=== PATIENT | female | born 1945 | race Caucasian/White ===

== ENCOUNTER 2018-04-06 18:44 | Emergency (ER) | payer MEDICARE, OTHER ==
[~2018-04-06] VITALS: Ht 175.3 cm; Wt 89.4 kg
[~2018-04-06 18:44] MED LIST: ACETAMINOPHEN-1 EAC1; AMITIZA 24 MCG24 MCG PO; ATIVAN0.5 MG PO; ATORVASTATIN CA40 MG PO; BENTYL 10 MG CA10 MG PO; COZAAR 50 MG TA50 M2 PO; COZAAR100 MG PO; DIOVAN40 MG PO; FLONASE BU; FLUOXETINE HCL40 MG PO; GAS-X; GLUCOPHAGE1000 MG PO; GLUCOTROL5 MG PO; GLYBURIDE 5 MG T5 M1 PO; KOMBIGLYZE XR1 EAC2 PO; LISINOPRIL10 MG PO; LOFIBRA67 MG PO; LOVASTAT40 PO; MEVACOR40 MG PO; NEURONTIN 300300 M1 PO; NORCO 5-325 TA1 EACH PO; PREVACID 30MG C30 M1 PG; PROZAC10 MG PO; PROZAC20 MG PO; SIMVASTATIN40 MG PO; TRAMADOL 50 MG50 MG PO
[2018-04-06] MEDS ORDERED: NAPROSYN500 MG PO ×2 (19:44→19:46)
[2018-04-06 20:02] VITALS: BP 159/50
== END 2018-04-06 20:03 | disposition home or self-care (01) ==
LOC: M.ERS 18:44
DX: S90.32XA Contusion of left foot, initial encounter (principal); F31.9 Bipolar disorder, unspecified; E78.5 Hyperlipidemia, unspecified; G25.81 Restless legs syndrome; E11.9 Type 2 diabetes mellitus without complications; F17.210 Nicotine dependence, cigarettes, uncomplicated; Z90.710 Acquired absence of both cervix and uterus; Z87.442 Personal history of urinary calculi; Z88.6 Allergy status to analgesic agent; Z88.8 Allergy status to other drugs, medicaments and biological substances; W22.8XXA Striking against or struck by other objects, initial encounter; Y93.89 Activity, other specified; Y92.89 Other specified places as the place of occurrence of the external cause; Y99.8 Other external cause status

== ENCOUNTER → 2019-06-20 | Outpatient (CLI) | payer MEDICARE, OTHER ==
[~2019-06-20] MED LIST changes: +NAPROSYN500 MG PO
== END ==
LOC: M.MRI 05-28 09:38
DX: Z12.2 Encounter for screening for malignant neoplasm of respiratory organs (principal); I70.213 Atherosclerosis of native arteries of extremities with intermittent claudication, bilateral legs; M50.21 Other cervical disc displacement, high cervical region; M48.02 Spinal stenosis, cervical region; Z87.891 Personal history of nicotine dependence; Z90.49 Acquired absence of other specified parts of digestive tract

== ENCOUNTER → 2019-09-26 | Outpatient (CLI) | payer MEDICARE, OTHER | LOC: M.MRI 11:10 | DX: M51.26 Other intervertebral disc displacement, lumbar region (principal); M48.061 Spinal stenosis, lumbar region without neurogenic claudication; M54.42 Lumbago with sciatica, left side; M77.9 Enthesopathy, unspecified ==

== ENCOUNTER → 2020-01-04 | Outpatient (CLI) | payer MEDICARE, OTHER | LOC: M.ULTRA 08:00 | PROVIDERS: ATTEND Nurse Practitioner Family | DX: D17.23 Benign lipomatous neoplasm of skin and subcutaneous tissue of right leg (principal); I65.23 Occlusion and stenosis of bilateral carotid arteries; R09.89 Other specified symptoms and signs involving the circulatory and respiratory systems; R22.41 Localized swelling, mass and lump, right lower limb ==

== ENCOUNTER → 2020-01-18 | Outpatient (CLI) | payer MEDICARE, OTHER | LOC: M.MRI 10:13 | PROVIDERS: ATTEND Nurse Practitioner Family | DX: R22.41 Localized swelling, mass and lump, right lower limb (principal) ==

== ENCOUNTER → 2020-02-06 | Outpatient (CLI) | payer MEDICARE, OTHER ==
[2020-02-06 10:30] LABS: HEMATOCRIT 37.2 % (37.0-47.0); HEMOGLOBIN 12.5 gm/dL (12.0-15.0); MCH 29.3 pg (26.0-34.0); MCHC 33.6 g/dL (28.0-37.0); MCV 87.1 fL (80.0-100.0); RBC 4.28 mil/uL (4.20-5.00); RDW-CV 14.5 % (10.5-14.5)
== END ==
LOC: M.LAB 09:56
PROVIDERS: ATTEND Orthopaedic Surgery
DX: M79.604 Pain in right leg (principal)

== ENCOUNTER → 2020-02-20 | Outpatient (CLI) | payer MEDICARE, OTHER ==
[2020-02-20 12:47] LABS: CREATININE 0.9 mg/dL (0.6-1.3)
== END ==
LOC: M.MRI 02-13 10:09 → M.LAB 12:19 → M.MRI 13:30
PROVIDERS: ATTEND Neurological Surgery
DX: M51.37 Other intervertebral disc degeneration, lumbosacral region (principal); M48.07 Spinal stenosis, lumbosacral region; M51.26 Other intervertebral disc displacement, lumbar region; M46.86 Other specified inflammatory spondylopathies, lumbar region; N28.1 Cyst of kidney, acquired; M25.78 Osteophyte, vertebrae

== ENCOUNTER → 2020-04-01 | Outpatient (CLI) | payer MEDICARE, OTHER | LOC: M.RAD 11:40 | PROVIDERS: ATTEND Nurse Practitioner Family | DX: M19.072 Primary osteoarthritis, left ankle and foot (principal); M85.872 Other specified disorders of bone density and structure, left ankle and foot; M77.32 Calcaneal spur, left foot ==

== ENCOUNTER → 2020-07-02 | Outpatient (CLI) | payer MEDICARE, OTHER ==
[~2020-07-02] MED LIST changes: +ACTOS 45 MG45 M1 PO; +ASA81BEC PO; -ATORVASTATIN CA40 MG PO; +FLUOXETINE HCL60 MG PO; +LIPITOR40 MG PO; +LYRICA100 MG PO; +MAGNESIUM250 M1 PO; +VITAMIN D31250 MC1 PO
--- NOTE | 2020-07-03 10:53 | CARDNUC ---
[place] [address] CARDIAC NUCLEAR IMAGING REPORT Name: RACHEL NOONAN Mirza Room: [facility]#: [id number] Admission: 07/02/20 Attend Phys: Katie Lugo MD Discharge: Date of : 49 Date of Service: 07/03/20 1052 Report #: [id number] THIS REPORT FOR: cc: Barbi Nicole Angela Jo RNP Liston, Michael J. MD [facility] ~ APPROVED REPORT Study performed: 07/02/2020 11:28:24 Exam: Nuclear Stress Test Indication: Chest pain Patient Location: Out-Patient Stress Tech: Jaylyn Hamilton Stress Nurse: Lea Rivas RN NM Tech:ISREAL Flores Ht: 5 ft 9 in Wt: 220 lbs BSA: 2.15 m2 BMI: 32.48 Medical History Medical History: Diabetes, HTN, Hyperlipidemia, Smoking Medications: lipitor, asa81, losartan Allergies: novacaine, lisinopril, ibuprofen, metformin, bupropion, reglan, alendronate, rybelsus Cardiac Risk Factors: Age, Current Smoker, DM, HTN, Hyperlipidemia Exercise History: Sedentary Stress Test Details Stress Test: Pharmacologic stress testing performed using 0.4 mg of regadenoson per 5 mL given IV over 10 seconds. Reason for pharmacologic stress test: physical limitation. HR Resting HR: 60 bpm Max Heart Rate (APMHR): 148 bpm Max HR Achieved: 79 bpm Target HR (85% APMHR): 125 bpm % of APMHR: 53 Recovery HR: 75 bpm BP Resting BP: 130/57 mmHg Max BP: 121/41 [place] [address] CARDIAC NUCLEAR IMAGING REPORT Name: RACHEL NOONAN Room: [facility]#: [id number] Admission: 07/02/20 Attend Phys: Katie Lugo MD Discharge: Date of : 49 Date of Service: 07/03/20 1052 Report #: [id number] ECG Resting ECG: Sinus Rhythm Stress ECG: Sinus Rhythm ST Change: None Arrhythmia: None Recovery ECG: Sinus Rhythm Recovery ST Change: None Recovery Arrhythmia: None Clinical Reason for Termination: Completed protocol The patient tolerated Lexiscan infusion without significant cardiac symptoms. Nurse Comments pt unalble to stand unassisted Stress ECG Conclusion Baseline twelve-lead EKG shows sinus rhythm without significant ST segment or T wave abnormality. EKGs obtained during and post Lexiscan infusion show sinus rhythm with no significant ST segment or T wave changes when compared to baseline. There were no stress-induced arrhythmias. NM EXAM: Myocardial Perfusion REST/STRESS Imaging Protocol: Rest Tc-99m/Stress Tc-99m 1 day Resting Data Rest SPECT myocardial perfusion imaging was performed in supine position 30 minutes following the intravenous injection of 10.3 mCi of Tc-99m Sestamibi. Time of rest injection: 0935 Date: 07/02/2020 The images were gated to evaluate regional wall motion and calculate left ventricular ejection fraction. Administration Route: IV Administration Site: Right Wrist Pharmacologic Stress Pharmacologic stress test was performed by injecting Regadenoson 0.4 mg IV push followed by the intravenous injection of 29.6 mCi of Tc-99m Sestamibi. Time of stress injection: 1155 Date: 07/02/2020 Administration Route: IV Gated Stress SPECT was performed 40 minutes after stress injection. The images were gated to evaluate regional [place] [address] CARDIAC NUCLEAR IMAGING REPORT Name: RACHEL NOONAN Room: [facility]#: [id number] Admission: 07/02/20 Attend Phys: Katie Lugo MD Discharge: Date of : 49 Date of Service: 07/03/20 1052 Report #: [id number] left ventricular ejection fraction. Prone imaging was performed. Study Quality Study: Good Artifact: Mild Breast artifact Study Data At rest, the left ventricular ejection fraction was 76%.. Post stress, the left ventricular ejection was 75%.. TID = 1.18. Perfusion Perfusion images show a moderate region of photopenia on both stress and rest images suggestive of breast attenuation artifact. Review of the raw data confirms this. There is normal wall motion in this region. There were no reversible defects to suggest ischemia. Wall Motion Normal left ventricular wall motion. Nuclear Conclusion ECG Findings: negative for ischemia Clinical Findings: negative for ischemia Nuclear Findings: negative for ischemia Exercise Capacity: not assessed Left Ventricular Function: normal Risk Study: low Perfusion images showed no reversible defects to suggest ischemia. Global LV systolic function is normal. This is a low risk study. <Conclusion> Baseline twelve-lead EKG shows sinus rhythm without significant ST segment or T wave abnormality. EKGs obtained during and post Lexiscan infusion show sinus rhythm with no significant ST segment or T wave changes when compared to baseline. There were no stress-induced arrhythmias. <ELECTRONICALLY SIGNED> By: Andrea Moreland MD, FACC 07/03/20 105 105 105 Andrea Moreland MD, FACC /INF
== END ==
LOC: M.NUC 06-19 10:11 → M.CRD 09:00 → M.NUC 10:00
PROVIDERS: ATTEND Family Medicine Geriatric Medicine
DX: R07.9 Chest pain, unspecified (principal)

== ENCOUNTER 2021-01-11 19:29 | Emergency (ER) | payer MEDICARE, OTHER ==
[~2021-01-11] VITALS: Ht 175.3 cm; Wt 104.3 kg
[2021-01-11 21:12] VITALS: BP 141/70
== END 2021-01-11 21:16 | disposition home or self-care (01) ==
LOC: M.ERS 19:29
DX: S63.502A Unspecified sprain of left wrist, initial encounter (principal); E78.5 Hyperlipidemia, unspecified; E11.9 Type 2 diabetes mellitus without complications; Z87.442 Personal history of urinary calculi; Z90.710 Acquired absence of both cervix and uterus; Z88.6 Allergy status to analgesic agent; Z88.8 Allergy status to other drugs, medicaments and biological substances; X50.9XXA Other and unspecified overexertion or strenuous movements or postures, initial encounter; Y93.89 Activity, other specified; Y92.89 Other specified places as the place of occurrence of the external cause; Y99.8 Other external cause status